=== PATIENT | male | born 1970 | race Caucasian/White ===

== ENCOUNTER → 2017-08-05 15:05 | Outpatient (CLI) | payer OTHER, SELFPAY ==
--- NOTE | 2017-08-05 15:12 | XR_ITS ---
XR knee LT 4V HISTORY: Left knee pain ITS.REASON: knee pain ORDERING PHYSICIAN: Valerie Navarro PATIENT AGE: 47 years COMPARISON: None FINDINGS: Weightbearing views are performed along with a patellar view. Mild osteoarthritic changes are present at the medial compartment and patellofemoral joint. No fracture or dislocation. No lytic or blastic change. There are small osteophytes at the patellofemoral joint and medial compartment. IMPRESSION: Mild osteoarthritis of the left knee as described above
--- NOTE | 2017-08-05 15:12 | XR_ITS ---
XR knee RT 4V HISTORY: Right knee pain ITS.REASON: knee pain ORDERING PHYSICIAN: Valerie Navarro PATIENT AGE: 47 years COMPARISON: None FINDINGS: No fracture or dislocation. No lytic or blastic change. Normal mineralization. There are mild osteoarthritic changes of the medial compartment and patellofemoral joint some decrease in the joint space and mild osteophyte formation. No other significant findings IMPRESSION: Mild osteoarthritis of the right knee
== END ==
PROVIDERS: PCP Nurse Practitioner Family; Visit Provider Nurse Practitioner Family
DX: M25.561 Pain in right knee (principal); M25.562 Pain in left knee; G89.29 Other chronic pain
CPT/HCPCS: 73564

== ENCOUNTER → 2017-09-23 16:15 | Outpatient (CLI) | payer OTHER, SELFPAY ==
[2017-09-23 16:42] LABS: Basophils # 0.1 K/mm3 (0-0.2); Basophils % 1.2 % (0.1-2.0); Eosinophils # 0.3 K/mm3 (0.0-0.4); Eosinophils % 3.6 % (0.1-12.0); Hematocrit 49.3 % (42.0-52.0); Hemoglobin 16.3 g/dL (14.1-18.0); Lymphocytes # 2.3 K/mm3 (0.7-4.5); Lymphocytes % 30.3 K/mm3 (10-50); Mean Corpuscular Hemoglobin 29.7 pg (27.0-31.2); Mean Corpuscular Volume 89.9 fl (80-94); Mean Platelet Volume 7.4 fl (7.4-10.4); Monocytes # 0.6 K/mm3 (0.1-1.0); Monocytes % 7.9 % (1.7-9.3); Neutrophils # 4.4 K/mm3 (1.8-7.8); Neutrophils % 56.9 % (37.0-80.0); Platelet Count 366 K/mm3 (142-424); Red Blood Count 5.48 M/mm3 (4.60-6.20); Red Cell Distribution Width 13.7 % (11.5-17.5); White Blood Count 7.7 K/mm3 (4.8-10.8)
[2017-09-23 17:02] LABS: Anion Gap 12.1 mEq/L (5-15); Blood Urea Nitrogen 19 mg/dL (7-18); Carbon Dioxide 31 mmol/L (21.0-32.0); Chloride 104 mmol/L (98-107); Creatinine,Serum 1.05 mg/dL (0.70-1.30); Estimated Glomerular Filt Rate 76 ml/min (>60); GFR (African American) 92 ML/MIN (>60); Glucose 81 mg/dL (74-106); Potassium 4.1 mmoL/L (3.5-5.1); Sodium 143 mmol/L (136-145)
== END ==
PROVIDERS: Visit Provider Surgery
DX: Z01.818 Encounter for other preprocedural examination (principal); L72.9 Follicular cyst of the skin and subcutaneous tissue, unspecified
CPT/HCPCS: 36415; 80048; 85025; 93005

== ENCOUNTER → 2019-01-22 12:21 | Outpatient (CLI) | payer BC, SELFPAY ==
--- NOTE | 2019-01-22 12:24 | XR_ITS ---
PROCEDURE: XR ELBOW RT 2V CLINICAL INDICATION: Possible tricep tear Pain following injury, possible triceps tear COMPARISON: No exams were available for comparison FINDINGS: No fracture or dislocation. No lytic or blastic change. There is normal mineralization. The joint spaces are well-preserved. No significant degenerative/arthritic changes. No erosive changes evident. Other findings:There is some minimal lobular contour involving the soft tissues along the distal aspect of the humerus. This could be seen triceps injury. MRI may be of further value clinically warranted. A mildly prominent enthesophyte is present at the olecranon. IMPRESSION: No acute fracture. Mild lobular contour of the soft tissues along the distal aspect of the humerus nonspecific but could be seen with triceps tendon injury and may be better evaluated with MRI if clinically desired Dictated by: Dk Lang MD 01/22/2019 13:29 Signed by: <Electronically signed by Dk Lang MD in [place]> 01/22/2019 13:29
== END ==
PROVIDERS: PCP Emergency Medicine; Visit Provider Orthopaedic Surgery
DX: M25.521 Pain in right elbow (principal)
CPT/HCPCS: 73070

== ENCOUNTER → 2019-01-26 08:14 | Outpatient (CLI) | payer BC, SELFPAY ==
--- NOTE | 2019-01-26 08:16 | MR_ITS ---
PROCEDURE: MR ELBOW RT WO CON CLINICAL INDICATION: evaluate for distal bicep tear Elbow pain with movement with pain on palpation at the biceps tendon region. COMPARISON: XR ELBOW RT 2V from 01/22/2019 TECHNIQUE: Routine multiplanar multi echo sequences are performed without contrast. FINDINGS: There is an enthesophyte at the olecranon process. The triceps tendon is noted at this area has some irregularity but does not appear to be torn. Tendinopathy/tendinosis or strain is a consideration. There is increased T2 signal with edema involving the distal aspect of the biceps tendon at its insertion on the radial tubercle. There thickening of the tendon at this area. This is consistent with at least a high-grade partial tear. Fluid is present in this region. The tendon does not appear retracted at this time the brachialis tendon appears intact. The collateral ligaments, common extensor, and common flexor tendons have an unremarkable appearance. IMPRESSION: High-grade partial tear of the distal aspect of the biceps tendon with surrounding edema and fluid. A full-thickness tear without retraction is not excluded. Dictated by: Dk Lang MD 01/27/2019 07:22 Signed by: <Electronically signed by Dk Lang MD in [place]> 01/27/2019 07:22
== END ==
PROVIDERS: PCP Nurse Practitioner Family; Visit Provider Orthopaedic Surgery
DX: S59.901A Unspecified injury of right elbow, initial encounter (principal)
CPT/HCPCS: 73221

== ENCOUNTER → 2019-01-29 16:02 | Outpatient (CLI) | payer BC, SELFPAY ==
[2019-01-29 16:06] LABS: MANUAL DIFFERENTIAL MANUAL DIFFERENTIAL (MANUAL DIFF)
--- NOTE | 2019-01-29 16:19 | ECG_ITS ---
APPROVED REPORT Exam: Resting ECG HR:87 bpm ECG Measurements Heart Rate 87 AXES ID 158 P 50 QRSd 100 QRS 38 QT 352 T 48 QTc 423 <Conclusion> Normal sinus rhythm Normal ECG Electronically signed by : Ashish Massey, 01/29/2019 17:36:54
[2019-01-29 16:51] LABS: Basophils # 0.1 K/mm3 (0-0.2); Basophils % 1.3 % (0.1-2.0); Eosinophils # 0.2 K/mm3 (0.0-0.4); Eosinophils % 3.1 % (0.1-12.0); Hematocrit 48.6 % (42.0-52.0); Lymphocytes % 26.2 % (10-50); Mean Corpuscular Hemoglobin 29.2 pg (27.0-31.2); Mean Corpuscular Volume 88.5 fl (80-94); Monocytes # 0.7 K/mm3 (0.1-1.0); Monocytes % 9.1 % (1.7-9.3); Neutrophils # 4.7 K/mm3 (1.8-7.8); Neutrophils % 60.3 % (37.0-80.0); Platelet Count 392 K/mm3 (142-424); Red Blood Count 5.49 M/mm3 (4.60-6.20); Red Cell Distribution Width 13.7 % (11.5-17.5); White Blood Count 7.7 K/mm3 (4.8-10.8)
[2019-01-29 17:17] LABS: Alanine Aminotransferase 57 U/L (12-78); Albumin Level 3.8 gm/dL (3.4-5.0); Albumin/Globulin Ratio 1.1 (1.1-1.8); Alkaline Phosphatase 68 U/L (46-116); Anion Gap 13.4 mEq/L (5-15); Aspartate Amino Transferase 19 U/L (15-37); Bilirubin,Total 0.8 mg/dL (0.2-1.0); Blood Urea Nitrogen 18 mg/dL (7-18); Calcium 9.4 mg/dL (8.5-10.1); Carbon Dioxide 29 mmol/L (21.0-32.0); Chloride 105 mmol/L (98-107); Estimated Glomerular Filt Rate 65 ml/min (>60); GFR (African American) 79 ML/MIN (>60); Globulin 3.4 gm/dl (1.3-3.2); Glucose 81 mg/dL (74-106); Potassium 4.4 mmoL/L (3.5-5.1); Sodium 143 mmol/L (136-145); Total Protein,Serum 7.2 gm/dL (6.4-8.2)
[2019-01-29 18:03] LABS: Eosinophils % 3 % (0-3); Lymphocytes % 28 % (10-50); Monocytes % 6 % (2-9); Neutrophils % 57 % (42-76); Platelet Estimate Normal; RBC Morphology Normal; Total Cells Counted 100
== END ==
PROVIDERS: Visit Provider Orthopaedic Surgery
DX: Z01.818 Encounter for other preprocedural examination (principal); S59.901A Unspecified injury of right elbow, initial encounter
CPT/HCPCS: 36415; 80053; 85007; 85014; 85018; 85048; 85049; 93005

== ENCOUNTER → 2019-02-11 09:33 | Outpatient (CLI) | payer BC, SELFPAY ==
--- NOTE | 2019-02-11 09:38 | XR_ITS ---
PROCEDURE: XR ELBOW RT 2V CLINICAL INDICATION: Post-op Bicep SX Follow-up surgery, biceps tendon repair COMPARISON: XR ELBOW RT 2V from 01/22/2019 XR ELBOW RT 2V from 02/04/2019 FINDINGS: Studies obtained through a splint. Status post biceps tendon repair Lucent defect is present in the proximal radius from the tendon repair with a small sideplate. There is good alignment. Other findings:None. IMPRESSION: Status post biceps tendon repair with good alignment Dictated by: Dk Lang MD 02/11/2019 17:55 Electronically signed by Dk Lang MD in [place] 02/11/2019 17:55
== END ==
PROVIDERS: PCP Emergency Medicine; Visit Provider Orthopaedic Surgery
DX: S46.211A Strain of muscle, fascia and tendon of other parts of biceps, right arm, initial encounter (principal)
CPT/HCPCS: 73070

== ENCOUNTER 2019-02-11 10:26 | Outpatient (RCR) | payer BC, SELFPAY | END 2019-02-11 10:35 | disposition home or self-care (01) | LOC: OT 10:26 | PROVIDERS: Visit Provider Orthopaedic Surgery | DX: S46.211A Strain of muscle, fascia and tendon of other parts of biceps, right arm, initial encounter (principal) | CPT/HCPCS: 97763 ==

== ENCOUNTER 2019-04-22 15:30 | Outpatient (RCR) | payer BC, SELFPAY ==
--- NOTE | 2019-02-16 13:55 | HMH.OTOPEV ---
OT Inpatient Evaluation Rehab OT Outpatient Eval Start: 02/16/19 13:19 Freq: Status: Active Protocol: Document 02/16/19 13:20 TFRY (Rec: 02/16/19 13:32 TFRY [id number]) Electronically Signed By Kasie Martin, OT 02/16/19 13:20 Outpatient Therapy Subjective History Subjective History This is a 48 year old right handed male referred to occupational therapy as patient is status post bicep tendon repair on February 04 . Patient reported that the injury occured on December 31 when he attempted to lift up a sign. Chief Complaint Pain Symptom Type Ache Symptoms Relieved By Rest/Positioning,Brace/Support Prior Functional Limitations None Current Functional Limitations Lifting Symptom Description Activity Dependent Level of pain today (0-10) 0 Pain scale - at its best (0-10) 0 Pain scale - at its worst (0-10) 3 Shoulder/Elbow Eval Shoulder Objective Measurements Elbow Objective Measurements Elbow ROM Right decreased ROM elbow exam standard right Elbow Extension Active Range of Motion ( 45 degrees) Elbow Extension Passive Range of Motion 45 (degrees) Elbow Flexion Active Range of Motion ( 120 degrees) Elbow Flexion Passive Range of Motion ( 130 degrees) Elbow Pronation of Forearm Range of 60 Motion (degrees) Elbow Supination of Forearm Range of 90 Motion (degrees) Elbow Supination of Forearm Range of 90 Motion (degrees) Elbow MMT Elbow/Forearm Strength Reason Not Orthopedic Precautions Measured OT Outpatient Assessment Impairments Problems/Impairments Impaired Range of Motion, Impaired Strength,Impaired Lifting Prognosis Rehab Potential Good Clinical Impression Consistent with Diagnosis Yes Short Term Goals Number of Weeks 3 Increase Range of Motion Yes: right elbow PROM - WFL; right elbow AROM - WFL Increase Strength Yes: right elbow strength 3/5 Patient to be Ind w/ HEP Yes Patient to be Ind w/ Advanced HEP Yes Care Home Goals Number of Weeks 8 Increase Range of Motion Yes: right elbow AROM - WFL Increase Strength Yes: right elbow strength - 4/ 5 Restore Ability to Lift Objects to Waist Yes Level Patient to be Ind w/ HEP Yes
--- NOTE | 2019-04-01 15:02 | HMH.RHREAS ---
Rehab Reassessment Rehab OP Re-assessment Start: 04/01/19 14:09 Freq: Status: Active Protocol: Document 04/01/19 14:10 TFRY (Rec: 04/01/19 14:58 TFRY [id number]) Electronically Signed By Kasie Martin OT 04/01/19 14:10 Rehab Re-assessment Subjective Subjective I feel that it is at least half better. Objective Objective Notes Patient seen this date for skilled occupational therapy services. Reassessment of right elbow AROM: Flexion/extension - WNL; Supination/Pronation - WNL. Strength - elbow - flexion - 3 +/5; extension - 3+/5; pronation - 3+/5; supination - 3+/5. Assessment Progress Assessment Progressing as Expected Assessment Notes ROM and strength are improving Patient goals met ROM goal Goals Not Met strength Plan Plan Continue OT to improve strength Frequency of Therapy 2x a week Duration of therapy 4 weeks Time and Billing Re-Eval Time 5 Re-Eval Billing Units 0 PHYSICIAN CERTIFICATION: I certify the specified therapy services for Bob Caldwell are required, authorized, and reviewed every 30 days.
== END 2019-04-22 15:35 | disposition home or self-care (01) ==
LOC: OT 15:30
PROVIDERS: Visit Provider Orthopaedic Surgery
DX: S46.211D Strain of muscle, fascia and tendon of other parts of biceps, right arm, subsequent encounter (principal)
CPT/HCPCS: 97014; 97110; 97140; 97164; 97165; G0283

== ENCOUNTER → 2019-10-22 16:01 | Outpatient (CLI) | payer BC, SELFPAY ==
--- NOTE | 2019-10-22 16:06 | XR_ITS ---
PROCEDURE: XR FOOT LT 2V CLINICAL INDICATION: bilateral foot pain COMPARISON: XR FOOT RT 2V from 10/22/2019 FINDINGS: There is mild osteoarthritic changes at the 1st MTP joint. Mild soft tissue swelling is noted along the medial aspect of the 1st interphalangeal joint. There is a well-circumscribed calcific density at the medial aspect of the 1st interphalangeal joint which could be due to an old avulsion injury. A well-circumscribed calcific density is present medial to the mid anterior aspect of the talus on the AP view and could be sequela from an old injury. IMPRESSION: Mild degenerative changes with soft tissue swelling at the medial aspect of the 1st interphalangeal joint Dictated by: Dk Lang MD 10/22/2019 19:44 Electronically signed by Dk Lang MD in [place] 10/22/2019 19:44
--- NOTE | 2019-10-22 16:06 | XR_ITS ---
PROCEDURE: XR FOOT RT 2V CLINICAL INDICATION: bilateral foot pain COMPARISON: No exams were available for comparison FINDINGS: No fracture or dislocation. No lytic or blastic change. There is normal mineralization. The joint spaces are well-preserved. No significant degenerative/arthritic changes. No erosive changes evident. Other findings:None. IMPRESSION: No acute findings. Dictated by: Dk Lang MD 10/22/2019 19:44 Electronically signed by Dk Lang MD in [place] 10/22/2019 19:44
== END ==
PROVIDERS: PCP Nurse Practitioner Family; Visit Provider Nurse Practitioner Family
DX: M79.671 Pain in right foot (principal); M79.672 Pain in left foot
CPT/HCPCS: 73620

== ENCOUNTER → 2021-01-16 19:40 | Outpatient (CLI) | payer BC, SELFPAY ==
[2021-01-16 21:29] LABS: Influenza A, PCR Not Detected (NotDetected); Influenza B, PCR Not Detected (NotDetected)
[2021-01-16 23:11] LABS: Coronavirus 19, PCR Detected (NotDetected)
== END ==
PROVIDERS: PCP Nurse Practitioner Family; Visit Provider Nurse Practitioner
DX: Z20.822 Contact with and (suspected) exposure to COVID-19 (principal)
CPT/HCPCS: U0003